=== PATIENT | female | born 1960 | race Caucasian/White ===

== ENCOUNTER 2020-04-26 09:41 | Emergency (ER) | payer OTHER ==
[2020-04-26] MEDS ORDERED: Naproxen 500 MG TAB ONE (10:12)
--- NOTE | 2020-04-26 10:20 | RAD ---
Exam:3 views right ankle HISTORY: Pain. COMPARISON: None FINDINGS: Soft tissue swelling. Preserved joint spaces. No fracture. IMPRESSION: No fracture.
--- NOTE | 2020-04-26 10:21 | RAD ---
Exam:Right foot 3 view HISTORY: Pain. Injury. COMPARISON: None FINDINGS: Lisfranc alignment is maintained. Mild hallux valgus deformity There is midfoot soft tissue swelling Mildly displaced oblique fracture involving the fifth metatarsal. IMPRESSION: Fifth metatarsal fracture.
== END 2020-04-26 11:17 | disposition home or self-care (01) ==
LOC: ERS 09:41
DX: S92.351A Displaced fracture of fifth metatarsal bone, right foot, initial encounter for closed fracture (principal); F17.210 Nicotine dependence, cigarettes, uncomplicated; X50.1XXA Overexertion from prolonged static or awkward postures, initial encounter

== ENCOUNTER 2022-12-10 12:17 | Outpatient (CLI) | payer OTHER | END 2022-12-10 12:18 | disposition home or self-care (01) | LOC: ULT 12:17 | PROVIDERS: ATTEND Family Medicine | DX: I73.9 Peripheral vascular disease, unspecified (principal); R59.1 Generalized enlarged lymph nodes | CPT/HCPCS: 76536; 93923 ==

== ENCOUNTER 2023-03-03 12:18 | Outpatient (CLI) | payer OTHER ==
[~2023-03-03 12:18] MED LIST: Iopamidol 370 76% 100 ML VIAL ONE
== END 2023-03-03 12:19 | disposition home or self-care (01) ==
LOC: BICCT 12:18
PROVIDERS: ATTEND Internal Medicine Cardiovascular Disease
DX: I73.9 Peripheral vascular disease, unspecified (principal); I70.0 Atherosclerosis of aorta; K57.30 Diverticulosis of large intestine without perforation or abscess without bleeding; M96.1 Postlaminectomy syndrome, not elsewhere classified
CPT/HCPCS: 75635

== ENCOUNTER 2023-04-01 13:53 | Outpatient (CLI) | payer OTHER | END 2023-04-01 13:54 | disposition home or self-care (01) | LOC: BICCT 13:53 | PROVIDERS: ATTEND Family Medicine | DX: F17.218 Nicotine dependence, cigarettes, with other nicotine-induced disorders (principal) | CPT/HCPCS: 71271 ==

== ENCOUNTER 2023-08-20 09:31 | Outpatient (CLI) | payer OTHER | END 2023-08-20 09:32 | disposition home or self-care (01) | LOC: BICRAD 09:31 | PROVIDERS: ATTEND Family Medicine | DX: J44.1 Chronic obstructive pulmonary disease with (acute) exacerbation (principal); R91.8 Other nonspecific abnormal finding of lung field; I70.0 Atherosclerosis of aorta | CPT/HCPCS: 71046 ==